=== PATIENT | female | born 1955 | race Hispanic/Latino ===

== ENCOUNTER 2017-10-17 18:18 | Emergency (ER) | payer MEDICAID ==
[2017-10-17 18:55] LABS: BASOPHILS % (AUTO) 0.8 % (0.0-5.0); EOSINOPHILS % (AUTO) 2.4 % (0.0-8.0); HEMATOCRIT 36.1 % (36-48); MEAN CORPUSCULAR HGB CONC 32.6 g/dL (32.0-36.0); MEAN CORPUSCULAR VOLUME 76.7 fL (79-99); MONOCYTES % (AUTO) 7.9 % (3.0-13.0); NEUTROPHILS % (AUTO) 48.9 % (40.0-77.0); PLATELET COUNT (AUTO) 307 K/uL (130-400); RED CELL DISTRIBUTION WIDTH 15.2 % (11.0-15.5); WHITE BLOOD COUNT (AUTO) 6.9 K/uL (4.8-10.8)
[2017-10-17 19:02] LABS: POTASSIUM 3.7 mmol/L (3.5-5.1)
[2017-10-17 19:07] LABS: ALBUMIN 3.8 g/dL (3.5-5.0); BILIRUBIN,TOTAL 0.2 mg/dL (0.2-1.0); TOTAL PROTEIN, SERUM 8.1 g/dL (6.0-8.3)
[2017-10-17 19:20] LABS: APPEARANCE,URINE Clear (CLEAR); BILIRUBIN,URINE Negative (NEGATIVE); COLOR,URINE Yellow (YELLOW); GLUCOSE, URINE (UA) Negative (NEGATIVE); KETONES,URINE Trace mg/dL (NEGATIVE); LEUKOCYTE ESTERASE ,URINE Moderate (NEGATIVE); NITRATE,URINE Negative (NEGATIVE); OCCULT BLOOD,URINE Negative (NEGATIVE); PH,URINE 5.5 (5.0-8.0); PROTEIN,URINE Negative (NEGATIVE)
[2017-10-17 19:30] LABS: BACTERIA,URINE Rare /HPF (None Seen); RBC,URINE 0-1 /HPF (0-1); SQUAMOUS EPITHELIAL CELL,UR Few /HPF (0-2)
[2017-10-17 19:31] LABS: MUCUS,URINE Rare LPF (None Seen)
== END 2017-10-17 19:59 | disposition home or self-care (01) ==
LOC: EDH 18:18
DX: N39.0 Urinary tract infection, site not specified (principal); E11.9 Type 2 diabetes mellitus without complications; Z79.4 Long term (current) use of insulin; J45.909 Unspecified asthma, uncomplicated
CPT/HCPCS: 36415; 74176; 80053; 81001; 82150; 83690; 85025; 86677

== ENCOUNTER 2017-11-12 07:23 | Emergency (ER) | payer MEDICAID ==
[2017-11-12] MEDS ORDERED: KETOROLAC TROMETHAMINE 30MG/ML ONE (08:30)
[2017-11-12] MEDS ORDERED: ONDANSETRON HCL MDV 20ML 2 MG/ML VIAL ONE (08:30)
[2017-11-12] MEDS ORDERED: MORPHINE SULFATE 4 MG/1ML SYG ONE (08:31)
== END 2017-11-12 09:14 | disposition home or self-care (01) ==
LOC: EDH 07:23
DX: M75.21 Bicipital tendinitis, right shoulder (principal); M75.31 Calcific tendinitis of right shoulder; J45.909 Unspecified asthma, uncomplicated; E11.9 Type 2 diabetes mellitus without complications; Z79.4 Long term (current) use of insulin
CPT/HCPCS: 73030; 96374; 96375; 99284; J1885; J2270

== ENCOUNTER 2017-12-09 18:30 | Inpatient (IN) | payer MEDICAID ==
[~2017-12-09] VITALS: Ht 157.5 cm; Wt 64.4 kg
[2017-12-09 19:17] LABS: BASOPHILS % (AUTO) 0.4 % (0.0-5.0); EOSINOPHILS % (AUTO) 0.7 % (0.0-8.0); HEMATOCRIT 34.3 % (36-48); MEAN CORPUSCULAR HEMOGLOBIN 25.4 pg (27.0-33.0); MEAN CORPUSCULAR HGB CONC 33.3 g/dL (32.0-36.0); MEAN CORPUSCULAR VOLUME 76.4 fL (79-99); MONOCYTES % (AUTO) 10.6 % (3.0-13.0); NEUTROPHILS % (AUTO) 66.3 % (40.0-77.0); PLATELET COUNT (AUTO) 239 K/uL (130-400); RED BLOOD CELL COUNT(AUTO) 4.48 MIL/uL (4.00-5.50); RED CELL DISTRIBUTION WIDTH 16.3 % (11.0-15.5); WHITE BLOOD COUNT (AUTO) 8.5 K/uL (4.8-10.8)
[2017-12-09 19:22] LABS: APPEARANCE,URINE Clear (CLEAR); BILIRUBIN,URINE Negative (NEGATIVE); COLOR,URINE Yellow (YELLOW); GLUCOSE, URINE (UA) Negative (NEGATIVE); KETONES,URINE Negative (NEGATIVE); LEUKOCYTE ESTERASE ,URINE Large (NEGATIVE); NITRATE,URINE Negative (NEGATIVE); OCCULT BLOOD,URINE Trace (NEGATIVE); PH,URINE 6.5 (5.0-8.0); PROTEIN,URINE Negative (NEGATIVE); UROBILINOGEN,URINE 0.2 mg/dL (0.2-1.0)
[2017-12-09 19:26] LABS: CREATININE 0.8 mg/dL (0.5-1.5); POTASSIUM 3.5 mmol/L (3.5-5.1)
[2017-12-09 19:31] LABS: ALBUMIN 3.1 g/dL (3.5-5.0); BILIRUBIN,TOTAL 0.3 mg/dL (0.2-1.0); TOTAL PROTEIN, SERUM 8.1 g/dL (6.0-8.3)
[2017-12-09 19:33] LABS: RBC,URINE None Seen /HPF (0-1)
[2017-12-09 19:34] LABS: BACTERIA,URINE Few /HPF (None Seen); WBC,URINE 26-50 /HPF (0-1)
[2017-12-09 19:48] LABS: CREATINE KINASE MB < 0.5 ng/mL (0.5-3.6); CREATINE KINASE, TOTAL 34 U/L (21-232); MYOGLOBIN 26 ng/mL (10-92); TROPONIN I < 0.04 ng/mL (0.00-0.06)
[2017-12-09] MEDS ORDERED: IOPAMIDOL-370 75 ML VIAL IV ONE (19:56)
[2017-12-09] MEDS ORDERED: CEFTRIAXONE SODIUM 1 GM ONE (20:22)
[2017-12-09] MEDS ORDERED: IPRATROPIUM/ALBUTEROL SULFATE 3 ML SOLUTION IH ONE (22:40)
[2017-12-09] MEDS ORDERED: MORPHINE SULFATE 4 MG/1ML SYG ONE (23:11)
[2017-12-09] MEDS ORDERED: ONDANSETRON HCL MDV 20ML 2 MG/ML VIAL ONE (23:12)
[2017-12-09] MEDS ORDERED: DEXTROSE 50%-WATER 50 ML DISP.SYRIN IV PRN (23:15)
[2017-12-09] MEDS: SODIUM CHLORIDE 0.9% 1000ML 1,000 ML IV SCH (23:15)
[2017-12-09] MEDS ORDERED: GLUCAGON 1MG KIT 1 MG ML IM PRN (23:15)
[2017-12-10] MEDS ORDERED: METF10004 PO (00:27)
[2017-12-10] MEDS ORDERED: IBUP-2070 PO (00:27)
[2017-12-10] MEDS ORDERED: BACL10TA PO (00:27)
[2017-12-10] MEDS ORDERED: OMEP40CA37 PO (00:27)
[2017-12-10] MEDS ORDERED: GABA-529 PO (00:27)
[2017-12-10] MEDS ORDERED: BUDE10.2 IH (00:27)
[2017-12-10 01:09] VITALS: BP 131/66
[2017-12-10] MEDS ORDERED: HYDRALAZINE HCL 20 MG/ML VIAL IV PRN (01:45)
[2017-12-10] MEDS ORDERED: ACETAMINOPHEN 325 MG TAB PO PRN (01:45)
[2017-12-10] MEDS ORDERED: MORPHINE SULFATE 4 MG/1ML SYG IV PRN (01:45)
[2017-12-10] MEDS ORDERED: ONDANSETRON HCL MDV 20ML 2 MG/ML VIAL IV PRN (01:45)
[2017-12-10] MEDS ORDERED: ALBUTEROL SULFATE 0.083% 2.5 MG/3 ML INH IH PRN (01:45)
[2017-12-10 04:38] VITALS: BP 113/61
[2017-12-10 06:36] LABS: BASOPHILS % (AUTO) 0.4 % (0.0-5.0); EOSINOPHILS % (AUTO) 0.9 % (0.0-8.0); HEMATOCRIT 31.4 % (36-48); LYMPHOCYTES % (AUTO) 23.7 % (21.0-51.0); MEAN CORPUSCULAR HEMOGLOBIN 24.8 pg (27.0-33.0); MEAN CORPUSCULAR HGB CONC 32.5 g/dL (32.0-36.0); MEAN CORPUSCULAR VOLUME 76.2 fL (79-99); MONOCYTES % (AUTO) 11.7 % (3.0-13.0); NEUTROPHILS % (AUTO) 63.3 % (40.0-77.0); PLATELET COUNT (AUTO) 218 K/uL (130-400); RED BLOOD CELL COUNT(AUTO) 4.12 MIL/uL (4.00-5.50); RED CELL DISTRIBUTION WIDTH 16.6 % (11.0-15.5)
[2017-12-10 07:05] LABS: CREATININE 0.7 mg/dL (0.5-1.5); POTASSIUM 3.3 mmol/L (3.5-5.1)
[2017-12-10] MEDS: SODIUM CHLORIDE 0.9% 1000ML 1,000 ML IV SCH ×4 (07:45→21:44)
[2017-12-10] MEDS: INSULIN R PO SS1 SQ SCH ×4 (07:45→20:57)
[2017-12-10 07:46] VITALS: BP 121/61
[2017-12-10] MEDS: CEFTRIAXONE SODIUM 1 GM IVP SCH ×2 (08:21→20:43)
[2017-12-10] MEDS: GABAPENTIN 300 MG CAPSULE PO SCH ×2 (08:22→20:42)
[2017-12-10] MEDS: ACETAMINOPHEN 325 MG TAB PO PRN ×2 (08:25→16:32)
[2017-12-10] MEDS ORDERED: CEFTRIAXONE 1GM/D5W 50ML 50 ML IV SCH (09:00)
[2017-12-10 11:30] VITALS: BP 110/64
[2017-12-10] MEDS ORDERED: LIDOCAINE HCL-MPF 1% 2ML VIAL IVP PRN (12:30)
[2017-12-10] MEDS ORDERED: POTASSIUM CHLORIDE 20MEQ/100ML 100 ML IV PRN (12:30)
[2017-12-10] MEDS ORDERED: POTASSIUM CHLORIDE 20 MEQ ERTAB PO PRN (12:30)
[2017-12-10] MEDS: POTASSIUM CHLORIDE 10% ELIXIR 20 MEQ/15 ML UDCUP PO PRN ×3 (13:37→18:11)
[2017-12-10 16:30] VITALS: BP 152/74
[2017-12-10 21:42] VITALS: BP 121/59
[2017-12-11 00:51] VITALS: BP 108/61
[2017-12-11] MEDS: SODIUM CHLORIDE 0.9% 1000ML 1,000 ML IV SCH ×2 (01:55→17:19)
[2017-12-11 04:56] VITALS: BP 134/83
[2017-12-11 05:47] LABS: CREATININE 0.8 mg/dL (0.5-1.5); MAGNESIUM 1.9 mg/dL (1.80-2.40); POTASSIUM 4.8 mmol/L (3.5-5.1)
[2017-12-11] MEDS: INSULIN R PO SS1 SQ SCH ×3 (06:23→16:04)
[2017-12-11 08:02] VITALS: BP 127/68
[2017-12-11] MEDS: CEFTRIAXONE SODIUM 1 GM IVP SCH (08:34)
[2017-12-11] MEDS: GABAPENTIN 300 MG CAPSULE PO SCH (08:34)
[2017-12-11] MEDS: ACETAMINOPHEN 325 MG TAB PO PRN (11:41)
[2017-12-11 11:46] VITALS: BP 119/61
[2017-12-11] MEDS ORDERED: SUB PER P&T FOR ASTHMA OR COPD RECOMMENDATION IH SCH (13:00)
[2017-12-11] MEDS ORDERED: IBUPROFEN 600 MG TABLET PO PRN (13:00)
[2017-12-11] MEDS ORDERED: CEFD300C3 PO (13:03)
[2017-12-11] MEDS: METFORMIN HCL 500 MG TABLET PO SCH ×2 (13:30→16:05)
[2017-12-11] MEDS ORDERED: GABAPENTIN 100 MG CAPSULE PO SCH (14:00)
[2017-12-11 16:00] VITALS: BP 119/60
[2017-12-11] MEDS ORDERED: METFORMIN HCL 500 MG TABLET PO SCH (17:00)
[2017-12-11] MEDS ORDERED: BUDESONIDE 0.5 MG/2 ML INH IH SCH (18:00)
[2017-12-11] MEDS ORDERED: ALBUTEROL SULFATE 0.083% 2.5 MG/3 ML INH IH SCH (18:00)
[2017-12-11] MEDS ORDERED: NON-FORMULARY MEDICATION 1 EACH (Metformin HCl 1,000 MG) PO SCH (21:00)
[2017-12-11] MEDS ORDERED: BACLOFEN 10 MG TABLET PO SCH (21:00)
[2017-12-12] MEDS ORDERED: PANTOPRAZOLE SODIUM 40 MG TABLET.DR PO SCH (07:30)
== END 2017-12-11 19:17 | disposition home or self-care (01) | DRG 463 ==
LOC: EDH 18:30 → EDHIP 18:31 → 4BH 23:09
PROVIDERS: ADMIT Family Medicine; ATTEND Family Medicine
DX: N10 Acute pyelonephritis (principal); E87.1 Hypo-osmolality and hyponatremia; E11.9 Type 2 diabetes mellitus without complications; F41.9 Anxiety disorder, unspecified; J45.909 Unspecified asthma, uncomplicated; M54.16 Radiculopathy, lumbar region; Z79.4 Long term (current) use of insulin
CPT/HCPCS: 36415; 72131; 74178; 80048; 80053; 81001; 82550; 82553; 82947; 82948; 83735; 83874; 84484; 85025; 87040; 87088; 87186; 93005; 94640; 94664; A4218; J0696; J1815; J2270; Q9967

== ENCOUNTER → 2018-01-25 | Outpatient (CLI) | payer MEDICAID ==
[~2018-01-25] MED LIST: BACL10TA PO; BUDE10.2 IH; CEFD300C3 PO; GABA-529 PO; IBUP-2070 PO; METF10004 PO; OMEP40CA37 PO
== END | disposition home or self-care (01) ==
LOC: RAH 07:17
DX: Z12.31 Encounter for screening mammogram for malignant neoplasm of breast (principal)
CPT/HCPCS: 77067

== ENCOUNTER → 2018-08-11 | Outpatient (CLI) | payer MEDICAID ==
[~2018-08-11] MED LIST changes: +GADODIAMIDE 10 MMOL/20 ML ML IV ONE; +METF-446 PO; -METF10004 PO
== END | disposition home or self-care (01) ==
LOC: RAH 08:03
PROVIDERS: ATTEND Family Medicine
DX: R16.0 Hepatomegaly, not elsewhere classified (principal); R10.33 Periumbilical pain; Z90.49 Acquired absence of other specified parts of digestive tract
CPT/HCPCS: 74183; A9579

== ENCOUNTER 2018-08-29 17:29 | Inpatient (IN) | payer MEDICAID | END 2018-09-02 12:19 | disposition home or self-care (01) | LOC: EDH 17:29 → EDHIP 17:30 → 3AH 21:12 | DX: A41.9 Sepsis, unspecified organism (principal); E87.2 Acidosis; E11.65 Type 2 diabetes mellitus with hyperglycemia; N39.0 Urinary tract infection, site not specified; N12 Tubulo-interstitial nephritis, not specified as acute or chronic ==

== ENCOUNTER → 2018-09-13 | Outpatient (CLI) | payer MEDICAID ==
[~2018-09-13] MED LIST changes: +ALBU8.5H8 IH; -BACL10TA PO; -BUDE10.2 IH; -CEFD300C3 PO; +CHOL500050 PO; -GABA-529 PO; -GADODIAMIDE 10 MMOL/20 ML ML IV ONE; -IBUP-2070 PO
[2018-09-13 08:51] LABS: BASOPHILS % (AUTO) 0.8 % (0.0-5.0); LYMPHOCYTES % (AUTO) 33.3 % (21.0-51.0); MEAN CORPUSCULAR HEMOGLOBIN 24.8 pg (27.0-33.0); MEAN CORPUSCULAR HGB CONC 31.4 g/dL (32.0-36.0); MEAN CORPUSCULAR VOLUME 78.8 fL (79-99); MONOCYTES % (AUTO) 6.7 % (3.0-13.0); NEUTROPHILS % (AUTO) 58.2 % (40.0-77.0); PLATELET COUNT (AUTO) 430 K/uL (130-400); RED BLOOD CELL COUNT(AUTO) 4.18 MIL/uL (4.00-5.50); RED CELL DISTRIBUTION WIDTH 15.9 % (11.0-15.5); WHITE BLOOD COUNT (AUTO) 4.9 K/uL (4.8-10.8)
[2018-09-13 08:53] LABS: AMMONIA 15 umol/L (11-32)
[2018-09-13 08:59] LABS: HEMOGLOBIN A1C 9.7 % (4.0-6.0)
[2018-09-13 09:06] LABS: ALANINE AMINOTRANSFERASE 49 U/L (12-78); ALBUMIN 3.8 g/dL (3.5-5.0); ASPARTATE AMINOTRANSFERASE 41 U/L (10-37); BILIRUBIN,DIRECT 0.1 mg/dL (0.0-0.3); BILIRUBIN,TOTAL 0.4 mg/dL (0.2-1.0); CARBON DIOXIDE 28 mmol/L (21-32); CHLORIDE 101 mmol/L (101-111); CHOLESTEROL 186 mg/dL (<200); CREATININE 0.8 mg/dL (0.5-1.5); GLOMERULAR FILTR. RATE CALC 77 mL/min (>60); GLUCOSE,RANDOM 296 mg/dL (70-105); HDL CHOLESTEROL 54 mg/dL (35-85); INR 0.93 (0.85-1.15); LDL DIRECT 115 mg/dL (0-99); PROTHROMBIN TIME 9.8 SEC (9.6-11.6); SODIUM SERUM 138 mmol/L (136-145); TOTAL PROTEIN, SERUM 8.5 g/dL (6.0-8.3); TRIGLYCERIDES 143 mg/dL (30-200); UREA NITROGEN, BLOOD 18 mg/dL (7-18)
[2018-09-13 09:22] LABS: % IRON SATURATION 10.4 % (22-44)
[2018-09-14 09:21] LABS: HEPATITIS A ANTIBODY IGM Negative (Negative); HEPATITIS Bs ANTIGEN SCREEN P Negative (Negative)
[2018-09-14 15:22] LABS: ALPHA-1-ANTITRYPSIN 160 mg/dL (90-200)
== END | disposition home or self-care (01) ==
LOC: LAB 07:18
PROVIDERS: ATTEND Internal Medicine Gastroenterology
DX: Z11.59 Encounter for screening for other viral diseases (principal); B96.81 Helicobacter pylori [H. pylori] as the cause of diseases classified elsewhere; K74.60 Unspecified cirrhosis of liver
CPT/HCPCS: 36415; 80048; 80061; 80076; 82103; 82105; 82140; 82172; 82247; 82390; 82607; 82728; 82746; 82977; 83010; 83036; 83516; 83540; 83550; 83883; 84460; 85025; 85610; 85730; 86038; 86255; 86677; 86706; 86708; 86709; 87340; 87520

== ENCOUNTER 2018-10-19 13:42 | Emergency (ER) | payer MEDICAID ==
[2018-10-19] MEDS ORDERED: MORPHINE SULFATE 4 MG/1ML SYG ONE (15:02)
[2018-10-19] MEDS ORDERED: ONDANSETRON ODT 4 MG TAB ONE (15:02)
== END 2018-10-19 15:11 | disposition home or self-care (01) ==
LOC: EDH 13:42
DX: B02.9 Zoster without complications (principal); E11.9 Type 2 diabetes mellitus without complications; J45.909 Unspecified asthma, uncomplicated; F41.9 Anxiety disorder, unspecified; Z98.890 Other specified postprocedural states; Z90.49 Acquired absence of other specified parts of digestive tract
CPT/HCPCS: 96372; 99283; J2270

== ENCOUNTER → 2019-01-02 | Outpatient (CLI) | payer MEDICARE ==
[2019-01-02 09:35] LABS: BASOPHILS % (AUTO) 0.8 % (0.0-5.0); EOSINOPHILS % (AUTO) 2.3 % (0.0-8.0); HEMATOCRIT 32.3 % (36-48); LYMPHOCYTES % (AUTO) 29.2 % (21.0-51.0); MEAN CORPUSCULAR HEMOGLOBIN 24.2 pg (27.0-33.0); MEAN CORPUSCULAR HGB CONC 31.7 g/dL (32.0-36.0); MEAN CORPUSCULAR VOLUME 76.4 fL (79-99); MONOCYTES % (AUTO) 7.9 % (3.0-13.0); NEUTROPHILS % (AUTO) 59.8 % (40.0-77.0); PLATELET COUNT (AUTO) 288 K/uL (130-400); RED BLOOD CELL COUNT(AUTO) 4.23 MIL/uL (4.00-5.50); RED CELL DISTRIBUTION WIDTH 17.8 % (11.0-15.5)
[2019-01-02 09:43] LABS: ALBUMIN 3.7 g/dL (3.5-5.0); BILIRUBIN,DIRECT 0.1 mg/dL (0.0-0.3); BILIRUBIN,TOTAL 0.2 mg/dL (0.2-1.0); CREATININE 0.7 mg/dL (0.5-1.5); POTASSIUM 4.1 mmol/L (3.5-5.1); TOTAL PROTEIN, SERUM 7.5 g/dL (6.0-8.3)
[2019-01-02 09:47] LABS: HEMOGLOBIN A1C 8.8 % (4.0-6.0)
[2019-01-02 09:58] LABS: INR 0.92 (0.85-1.15); PARTIAL THROMBOPLASTIN TIME 33.1 SEC (26.3-35.5); PROTHROMBIN TIME 9.7 SEC (9.6-11.6)
== END | disposition home or self-care (01) ==
LOC: RAH 08:54
PROVIDERS: ATTEND Family Medicine
DX: N64.4 Mastodynia (principal); K74.60 Unspecified cirrhosis of liver; E11.9 Type 2 diabetes mellitus without complications; Z90.49 Acquired absence of other specified parts of digestive tract; I70.8 Atherosclerosis of other arteries
CPT/HCPCS: 36415; 76641; 77066; 80048; 80061; 80076; 82105; 82140; 83036; 85025; 85610; 85730

== ENCOUNTER → 2019-02-21 | Outpatient (CLI) | payer MEDICARE ==
[2019-02-21 16:19] LABS: BASOPHILS % (AUTO) 0.5 % (0.0-5.0); EOSINOPHILS % (AUTO) 2.6 % (0.0-8.0); HEMATOCRIT 34.2 % (36-48); LYMPHOCYTES % (AUTO) 36.8 % (21.0-51.0); MEAN CORPUSCULAR HEMOGLOBIN 24.5 pg (27.0-33.0); MEAN CORPUSCULAR HGB CONC 31.5 g/dL (32.0-36.0); MEAN CORPUSCULAR VOLUME 77.8 fL (79-99); NEUTROPHILS % (AUTO) 51.1 % (40.0-77.0); NUCLEATED RED BLOOD CELLS 0.1 % (0.0-0.19); PLATELET COUNT (AUTO) 255 K/uL (130-400); RED BLOOD CELL COUNT(AUTO) 4.39 MIL/uL (4.00-5.50); RED CELL DISTRIBUTION WIDTH 16.6 % (11.0-15.5); WHITE BLOOD COUNT (AUTO) 5.6 K/uL (4.8-10.8)
== END | disposition home or self-care (01) ==
LOC: LAB 15:41
PROVIDERS: ATTEND Anesthesiology
DX: D64.9 Anemia, unspecified (principal)
CPT/HCPCS: 36415; 85025

== ENCOUNTER → 2019-02-23 | Outpatient (CLI) | payer MEDICARE | END | disposition home or self-care (01) | LOC: RAH 14:26 | PROVIDERS: ATTEND Anesthesiology | DX: M47.812 Spondylosis without myelopathy or radiculopathy, cervical region (principal); M47.814 Spondylosis without myelopathy or radiculopathy, thoracic region; M47.816 Spondylosis without myelopathy or radiculopathy, lumbar region; M25.78 Osteophyte, vertebrae; M43.16 Spondylolisthesis, lumbar region; M48.04 Spinal stenosis, thoracic region; M48.07 Spinal stenosis, lumbosacral region; M99.03 Segmental and somatic dysfunction of lumbar region; M99.01 Segmental and somatic dysfunction of cervical region | CPT/HCPCS: 72125; 72131 ==